=== PATIENT | male | born 1945 | race Caucasian/White ===

== ENCOUNTER → 2016-08-06 | Outpatient (REF) | payer MEDICARE, BC ==
[2016-08-06 12:22] LABS: BASOPHILS % (AUTO) 1 % (0-2); EOSINOPHILS # (AUTO) 0.1 10^3uL; EOSINOPHILS % (AUTO) 3 % (0-4); LYMPHOCYTES # (AUTO) 1.6 X10^3; MEAN CORPUSCULAR HGB CONC 34.5 g/dL (31.0-37.0); MEAN CORPUSCULAR VOLUME 96 FL (80-100); MEAN PLATELET VOLUME 9.8 FL (6.0-9.5); MONOCYTES # (AUTO) 0.4 X10^3; MONOCYTES % (AUTO) 8 % (3-11); NEUTROPHILS % (AUTO) 59 % (51-67); PLATELET COUNT 161 10^3uL (150-450); WHITE BLOOD COUNT 5.09 10^3uL (4.0-11.0)
[2016-08-06 12:34] LABS: MEAN CORPUSCULAR HEMOGLOBIN 33.2 PG (26.0-34.0)
[2016-08-06 12:44] LABS: ALBUMIN 4.2 g/dL (3.4-5.0); ANION GAP 15.4 MEQ/L (3-15); CALCULATED IONIZED CALCIUM 4.2 mg/dL (3.8-4.6); TOTAL PROTEIN 7.3 g/dL (6.4-8.5)
== END ==
LOC: LAB 11:24
PROVIDERS: ATTEND Family Medicine
DX: R53.83 Other fatigue (principal); I47.1 Supraventricular tachycardia; G47.33 Obstructive sleep apnea (adult) (pediatric); I49.9 Cardiac arrhythmia, unspecified; I10 Essential (primary) hypertension; E78.00 Pure hypercholesterolemia, unspecified; M10.9 Gout, unspecified; Z12.5 Encounter for screening for malignant neoplasm of prostate
CPT/HCPCS: 80053; 80061; 84443; 84550; 85025; G0103; 84153

== ENCOUNTER 2016-08-24 06:34 | Day surgery (SDC) | payer MEDICARE, BC ==
[2016-08-24] VITALS (8 sets, daily range): BP systolic 102–152; BP diastolic 52–78
[~2016-08-24] VITALS: Ht 185.4 cm; Wt 123.0 kg
[~2016-08-24 06:34] MED LIST: LACTATED RINGERS 1,000 ML IV SCH; SODIUM CHLORIDE FLUSH 3 ML SYR IV PRN
[2016-08-24] MEDS ORDERED: MIDAZOLAM 2 MG/2 ML (VERSED) VIAL ONE (07:00)
[2016-08-24] MEDS ORDERED: ALFENTANIL 500 MCG/ML (ALFENTA) 5 ML AMP IV ONE (07:01)
[2016-08-24] MEDS ORDERED: PROPOFOL 20 ML IV ONE ×2 (07:01)
== END 2016-08-24 10:48 | disposition home or self-care (01) ==
LOC: ASC 06:34
PROVIDERS: ATTEND Surgery
DX: D12.4 Benign neoplasm of descending colon (principal); Z86.010 Personal history of colon polyps; Z98.0 Intestinal bypass and anastomosis status; Z90.49 Acquired absence of other specified parts of digestive tract; I10 Essential (primary) hypertension; E03.9 Hypothyroidism, unspecified; G47.33 Obstructive sleep apnea (adult) (pediatric); Z79.82 Long term (current) use of aspirin
CPT/HCPCS: 36415; 45380; 84132; 88305; J2250; J7120